=== PATIENT | male | born 1955 | race Caucasian/White ===

== ENCOUNTER 2016-12-16 06:05 | Emergency (ER) | payer BC ==
[2016-12-16 06:11] VITALS: TEMP 97.4
[2016-12-16 06:19] LABS: Glucose,Whole Blood 303 mg/dL (75-99)
--- NOTE | 2016-12-16 06:21 | ED ---
General Adult HPI - General Source: patient, RN notes reviewed Mode of arrival: ambulatory Limitations: no limitations <Serafin Briscoe - Last Filed: 12/16/16 06:50> <James Groves - Last Filed: 12/16/16 07:42> - General Chief complaint: Recheck/Abnormal Lab/Rx Stated complaint: hyperglycemia Time Seen by Provider: 12/16/16 06:05 - History of Present Illness Initial comments: This is a 61-year-old male with a past medical history significant for diabetes and ulcers on both feet. Patient comes in today because he woke up in the middle the night and he felt chilled straight checked his sugar it was over 370 decided to come to the emergency department. Patient denies any fever. Patient states the ulcers on his foot appear to be getting larger especially on his left foot. Patient has not noticed any increased redness or streaking up his feet and leg. Patient denies any difficulty breathing. Patient denies shortness of breath. Patient denies any chest pain or palpitations. Patient denies any recent fever or significant cough. Patient denies any dysuria hematuria or urinary frequency. Patient denies headache patient denies numbness or weakness. Patient denies lightheadedness or dizziness (Serafin Briscoe) - Related Data Home Medications Medication Instructions Recorded Confirmed sitaGLIPtin [Januvia] 100 mg PO DAILY 10/03/15 12/16/16 Canagliflozin/Metformin HCl 1 tab PO DAILY 10/31/15 12/16/16 [Invokamet 150-1,000 mg Tablet] Allergies Allergy/AdvReac Type Severity Reaction Status Date / Time No Known Allergies Allergy Verified 12/16/16 06:07 Review of Systems ROS Other: All systems not noted in ROS Statement are negative. <Serafin Briscoe - Last Filed: 12/16/16 06:50> ROS Other: All systems not noted in ROS Statement are negative. <James Groves - Last Filed: 12/16/16 07:42> ROS Statement: Those systems with pertinent positive or pertinent negative responses have been documented in the HPI. Past Medical History Past Medical History: Diabetes Mellitus Additional Past Medical History / Comment(s): wound to left foot, recurrent History of Any Multi-Drug Resistant Organisms: None Reported Past Surgical History: Tonsillectomy Additional Past Surgical History / Comment(s): amputation of great toe and middle toe left foot, laser to both eyes Past Anesthesia/Blood Transfusion Reactions: No Reported Reaction Past Psychological History: No Psychological Hx Reported Smoking Status: Never smoker Past Alcohol Use History: None Reported Past Drug Use History: None Reported - Past Family History Mother Family Medical History: No Reported History Father Family Medical History: Diabetes Mellitus <Serafin Briscoe - Last Filed: 12/16/16 06:50> General Exam Limitations: no limitations <Serafin Briscoe - Last Filed: 12/16/16 06:50> <James Groves Radha - Last Filed: 12/16/16 07:42> - General Exam Comments Initial Comments: GENERAL: Patient is well-developed and well-nourished. Patient is nontoxic and well- hydrated and is in mild distress. ENT: Neck is soft and supple. No significant lymphadenopathy is noted. Oropharynx is clear. Moist mucous membranes. Neck has full range of motion without eliciting any pain. EYES: The sclera were anicteric and conjunctiva were pink and moist. Extraocular movements were intact and pupils were equal round and reactive to light. Eyelids were unremarkable. PULMONARY: Unlabored respirations. Good breath sounds bilaterally. No audible rales rhonchi or wheezing was noted. CARDIOVASCULAR: There is a regular rate and rhythm without any murmurs gallops or rubs. ABDOMEN: Soft and nontender with normal bowel sounds. No palpable organomegaly was noted. There is no palpable pulsatile mass. SKIN: Patient has an ulcer on the medial aspect of the right first toe there is also an ulceration on the left foot at the base of the first and second toe. There is no significant erythema or streaking from either of these sites. NEUROLOGIC: Patient is alert and oriented x3. Cranial nerves II through XII are grossly intact. Motor and sensory are also intact. Normal speech, volume and content. Symmetrical smile. MUSCULOSKELETAL: Normal extremities with adequate strength and full range of motion. LYMPHATICS: No significant lymphadenopathy is noted PSYCHIATRIC: Normal psychiatric evaluation. Normal interpersonal interactions appears functionally intact in deals appropriately with others. No signs of depression. No signs of anxiety. (Serafin Briscoe) Medical Decision Making - Lab Data Result diagrams: 12/16/16 06:23 <Serafin Briscoe - Last Filed: 12/16/16 06:50> - Lab Data Result diagrams: 12/16/16 06:23 12/16/16 06:23 <James Groves - Last Filed: 12/16/16 07:42> - Medical Decision Making EKG shows normal sinus rhythm at 80 bpm KS interval is a 70 QRS 116 QT interval 376 QTC is 454 per patient's EKG shows no ST segment elevation or depression or T wave abnormalities are noted. Dr. Groves will be taking over the care of this patient at 7 AM (Serafin Briscoe) 61-year-old male presenting with lower extremity ulcers on both feet. Patient complained of chills. Noticed his sugar was elevated and came in for evaluation. I reevaluated the patient time of signout. Laboratory studies were pending. He does have bilateral ulcers at the base of the great toe. These appear clean, no purulence, no associated cellulitis. Patient is afebrile , vital signs are stable. He does have follow-up at the wound clinic, he has been not been there in several months but he states he will return for wound evaluation. Laboratory studies reveal normal white blood cell count, creatinine 1.42 which is patient's baseline, blood glucose is elevated to 58, however there is no anion gap, acetone negative. Chest x-ray shows no signs of infection. Patient is discharged with outpatient follow-up. (James Groves) - Lab Data Lab Results 12/16/16 12/16/16 12/16/16 Range/Units 06:15 06:23 06:23 WBC 7.5 (3.8-10.6) k/uL RBC 4.60 (4.30-5.90) m/uL Hgb 13.3 (13.0-17.5) gm/dL Hct 41.1 (39.0-53.0) % MCV 89.5 (80.0-100.0) fL MCH 28.9 (25.0-35.0) pg MCHC 32.3 (31.0-37.0) g/dL RDW 13.8 (11.5-15.5) % Plt Count 273 (150-450) k/uL Neutrophils % 68 % Lymphocytes % 21 % Monocytes % 6 % Eosinophils % 3 % Basophils % 1 % Neutrophils # 5.0 (1.3-7.7) k/uL Lymphocytes # 1.6 (1.0-4.8) k/uL Monocytes # 0.4 (0-1.0) k/uL Eosinophils # 0.2 (0-0.7) k/uL Basophils # 0.0 (0-0.2) k/uL PT (9.0-12.0) sec INR (<1.2) APTT (22.0-30.0) sec Sodium 138 (137-145) mmol/L Potassium 4.8 (3.5-5.1) mmol/L Chloride 105 (98-107) mmol/L Carbon Dioxide 22 (22-30) mmol/L Anion Gap 11 mmol/L BUN 31 H (9-20) mg/dL Creatinine 1.42 H (0.66-1.25) mg/dL Est GFR (MDRD) Af Amer >60 (>60 ml/min/1.73 sqM) Est GFR (MDRD) Non-Af 51 (>60 ml/min/1.73 sqM) Glucose 258 H (74-99) mg/dL POC Glucose (mg/dL) 303 H (75-99) mg/dL POC Glu Cone Trucker ID Ted Doe Plasma Lactic Acid Vitor (0.7-2.0) mmol/L Calcium 9.4 (8.4-10.2) mg/dL Total Bilirubin 0.3 (0.2-1.3) mg/dL AST 15 L (17-59) U/L ALT 24 (21-72) U/L Alkaline Phosphatase 132 H (38-126) U/L Total Protein 7.5 (6.3-8.2) g/dL Albumin 3.9 (3.5-5.0) g/dL Urine Color Urine Appearance (Clear) Urine pH (5.0-8.0) Ur Specific [place] (1.001-1.035) Urine Protein (Negative) Urine Glucose (UA) (Negative) Urine Ketones (Negative) Urine Blood (Negative) Urine Nitrite (Negative) Urine Bilirubin (Negative) Urine Urobilinogen (<2.0) mg/dL Ur Leukocyte Esterase (Negative) Acetone, Qual Negative (Negative) 12/16/16 12/16/16 12/16/16 Range/Units 06:23 06:23 06:32 WBC (3.8-10.6) k/uL RBC (4.30-5.90) m/uL Hgb (13.0-17.5) gm/dL Hct (39.0-53.0) % MCV (80.0-100.0) fL MCH (25.0-35.0) pg MCHC (31.0-37.0) g/dL RDW (11.5-15.5) % Plt Count (150-450) k/uL Neutrophils % % Lymphocytes % % Monocytes % % Eosinophils % % Basophils % % Neutrophils # (1.3-7.7) k/uL Lymphocytes # (1.0-4.8) k/uL Monocytes # (0-1.0) k/uL Eosinophils # (0-0.7) k/uL Basophils # (0-0.2) k/uL PT 9.8 (9.0-12.0) sec INR 1.0 (<1.2) APTT 26.1 (22.0-30.0) sec Sodium (137-145) mmol/L Potassium (3.5-5.1) mmol/L Chloride (98-107) mmol/L Carbon Dioxide (22-30) mmol/L Anion Gap mmol/L BUN (9-20) mg/dL Creatinine (0.66-1.25) mg/dL Est GFR (MDRD) Af Amer (>60 ml/min/1.73 sqM) Est GFR (MDRD) Non-Af (>60 ml/min/1.73 sqM) Glucose (74-99) mg/dL POC Glucose (mg/dL) (75-99) mg/dL POC Glu Cone Trucker ID Plasma Lactic Acid Vitor 1.2 (0.7-2.0) mmol/L Calcium (8.4-10.2) mg/dL Total Bilirubin (0.2-1.3) mg/dL AST (17-59) U/L ALT (21-72) U/L Alkaline Phosphatase (38-126) U/L Total Protein (6.3-8.2) g/dL Albumin (3.5-5.0) g/dL Urine Color Light Yellow Urine Appearance Clear (Clear) Urine pH 5.0 (5.0-8.0) Ur Specific [place] 1.015 (1.001-1.035) Urine Protein Negative (Negative) Urine Glucose (UA) 4+ H (Negative) Urine Ketones Negative (Negative) Urine Blood Negative (Negative) Urine Nitrite Negative (Negative) Urine Bilirubin Negative (Negative) Urine Urobilinogen <2.0 (<2.0) mg/dL Ur Leukocyte Esterase Negative (Negative) Acetone, Qual (Negative) Disposition <Serafin Briscoe - Last Filed: 12/16/16 06:50> Time of Disposition: 07:42 <James Groves - Last Filed: 12/16/16 07:42> Clinical Impression: Diabetic foot ulcer, Hyperglycemia Disposition: HOME SELF-CARE Condition: Good Instructions: Diabetic Foot Ulcers (ED) Additional Instructions: Please follow-up with the wound clinic within the next week. Referrals: Raul Barnett DO [Primary Care Provider] - 1-2 days
[2016-12-16 06:40] LABS: Basophils % (A) 1 %; CH 30.2; CHCM 33.9; Eosinophils # (A) 0.2 k/uL (0-0.7); Eosinophils % (A) 3 %; HCT 41.1 % (39.0-53.0); HDW 2.74; HGB 13.3 gm/dL (13.0-17.5); Luc # (Auto) 0.15; Luc % (Auto) 2; Lymphocytes # (A) 1.6 k/uL (1.0-4.8); Lymphocytes % (A) 21 %; MCH 28.9 pg (25.0-35.0); MCHC 32.3 g/dL (31.0-37.0); MCV 89.5 fL (80.0-100.0); Mean Platelet Volume 7.5; Monocytes # (A) 0.4 k/uL (0-1.0); Monocytes % (A) 6 %; Neutrophils % (A) 68 %; RDW 13.8 % (11.5-15.5); WBC 7.5 k/uL (3.8-10.6); WBC (Perox) 7.36
[2016-12-16] MEDS: SODIUM CHLORIDE 0.9% 500 ML IV SCH (06:43)
[2016-12-16 06:46] LABS: Appearance,Urine Clear (Clear); Bilirubin,Urine Negative (Negative); Glucose,Urine (UA) 4+ (Negative); Ketones,Urine Negative (Negative); Leukocyte Esterase,Urine Negative (Negative); Nitrite,Urine Negative (Negative); Protein,Urine Negative (Negative); Specific Gravity,Urine 1.015 (1.001-1.035); UA Billing (MACRO vs. MICRO) CHEM; Urobilinogen,Urine <2.0 mg/dL (<2.0)
[2016-12-16 06:52] LABS: Partial Thromboplastin Time 26.1 sec (22.0-30.0); Prothrombin Time 9.8 sec (9.0-12.0)
[2016-12-16 07:01] LABS: ALT 24 U/L (21-72); AST 15 U/L (17-59); Alkaline Phosphatase 132 U/L (38-126); Anion Gap 11 mmol/L; Blood Urea Nitrogen 31 mg/dL (9-20); Calcium 9.4 mg/dL (8.4-10.2); Carbon Dioxide 22 mmol/L (22-30); Chloride 105 mmol/L (98-107); Glucose 258 mg/dL (74-99); Non-African American GFR(MDRD) 51 (>60 ml/min/1.73 sqM); Potassium 4.8 mmol/L (3.5-5.1); Sodium 138 mmol/L (137-145); Total Bilirubin 0.3 mg/dL (0.2-1.3); Total Protein 7.5 g/dL (6.3-8.2)
--- NOTE | 2016-12-16 07:06 | XR ---
EXAMINATION TYPE: XR chest 2V DATE OF EXAM: 12/16/2016 COMPARISON: 12/26/2015 HISTORY: Fever and diabetes TECHNIQUE: Frontal and lateral views of the chest are obtained. FINDINGS: There is no focal air space opacity, pleural effusion, or pneumothorax seen. Linear bibasi lar subsegmental atelectasis is seen with no focal consolidation. Lung volumes are low accentuating t he pulmonary vasculature. The cardiac silhouette size is within normal limits. The osseous structu res are intact. IMPRESSION: Minimal subsegmental bibasilar atelectasis with no focal consolidation to suggest pneumo kwame.
[2016-12-16 07:58] VITALS: BP 144/82; PULSE 84; RESP 17
== END 2016-12-16 07:58 | disposition home or self-care (01) ==
LOC: EC 06:05
DX: E11.65 Type 2 diabetes mellitus with hyperglycemia (principal); E11.621 Type 2 diabetes mellitus with foot ulcer; L97.529 Non-pressure chronic ulcer of other part of left foot with unspecified severity; L97.519 Non-pressure chronic ulcer of other part of right foot with unspecified severity; R68.83 Chills (without fever); Z79.84 Long term (current) use of oral hypoglycemic drugs; Z89.412 Acquired absence of left great toe; Z89.422 Acquired absence of other left toe(s); Z83.3 Family history of diabetes mellitus
CPT/HCPCS: 36415; 71020; 80053; 81003; 82009; 83605; 85025; 85610; 85730; 87040; 87086; 93005; 96360; 99285

== ENCOUNTER → 2017-09-11 | Outpatient (CLI) | payer BC ==
[2017-09-11 09:58] LABS: Basophils % (A) 1 %; Eosinophils # (A) 0.2 k/uL (0-0.7); Eosinophils % (A) 3 %; HCT 46.7 % (39.0-53.0); HGB 15.2 gm/dL (13.0-17.5); Lymphocytes # (A) 1.4 k/uL (1.0-4.8); Lymphocytes % (A) 21 %; MCH 28.4 pg (25.0-35.0); MCHC 32.6 g/dL (31.0-37.0); MCV 87.2 fL (80.0-100.0); Monocytes # (A) 0.5 k/uL (0-1.0); Monocytes % (A) 8 %; Neutrophils # (A) 4.2 k/uL (1.3-7.7); Neutrophils % (A) 65 %; Platelet Count 257 k/uL (150-450); RBC 5.35 m/uL (4.30-5.90); RDW 13.7 % (11.5-15.5); WBC 6.5 k/uL (3.8-10.6)
[2017-09-11 10:21] LABS: Albumin 4.4 g/dL (3.5-5.0); Calcium 10.4 mg/dL (8.4-10.2); Potassium 4.9 mmol/L (3.5-5.1); Total Bilirubin 0.8 mg/dL (0.2-1.3); Total Protein 7.6 g/dL (6.3-8.2)
== END | disposition home or self-care (01) ==
LOC: LABWHC1 09:06
PROVIDERS: ATTEND Family Medicine
DX: E11.65 Type 2 diabetes mellitus with hyperglycemia (principal); M67.90 Unspecified disorder of synovium and tendon, unspecified site
CPT/HCPCS: 36415; 80053; 85025

== ENCOUNTER 2020-05-08 17:54 | Inpatient (IN) | payer BC ==
[2020-05-08] MEDS ORDERED: SODIUM CHLORIDE 0.9% 1,000 ML IV STA (18:25)
[2020-05-08] MEDS ORDERED: diphenhydrAMINE 50 MG/ML 1 ML VIAL IVP STA (18:28)
--- NOTE | 2020-05-08 18:37 | ED ---
General Adult HPI - General Chief complaint: Extremity Injury, Upper Stated complaint: Abnormal arm movement Time Seen by Provider: 05/08/20 18:13 Source: patient, RN notes reviewed Mode of arrival: ambulatory Limitations: no limitations - History of Present Illness Initial comments: Patient is a pleasant [age]-year-old male presenting to the emergency Department with abnormal movements of his arm. Onset of symptoms was around 2 days ago. Symptoms have somewhat progressed since that time. Patient states mostly this is his arm however does have a little bit of his leg as well. Patient states he is unable to control his arm and there is random movements. Patient states there may be slight decrease i and coordination and does point out that he has difficulty touching his fingers to his thumb. No headache. No speech problems. No confusion. No facial involvement. Patient has had some cramping intermittently as well. - Related Data Home Medications Medication Instructions Recorded Confirmed sitaGLIPtin [Januvia] 100 mg PO DAILY 10/03/15 05/08/20 Canagliflozin/Metformin HCl 1 tab PO BID 10/31/15 05/08/20 [Invokamet 150-1,000 mg Tablet] Bydureon Bcise 2mg Autoinject 2 mg SQ FATIMA 05/08/20 05/08/20 Esomeprazole Magnesium [NexIUM] 20 mg PO DAILY 05/08/20 05/08/20 glipiZIDE [Glucotrol] 5 mg PO DAILY 05/08/20 05/08/20 Allergies Allergy/AdvReac Type Severity Reaction Status Date / Time No Known Allergies Allergy Verified 05/08/20 18:01 Review of Systems ROS Statement: Those systems with pertinent positive or pertinent negative responses have been documented in the HPI. ROS Other: All systems not noted in ROS Statement are negative. Constitutional: Denies: fever Eyes: Denies: eye pain ENT: Denies: ear pain Respiratory: Denies: cough, dyspnea Cardiovascular: Denies: chest pain Endocrine: Denies: fatigue Gastrointestinal: Denies: abdominal pain Genitourinary: Denies: dysuria Musculoskeletal: Denies: back pain Skin: Denies: rash Neurological: Reports: as per HPI. Denies: headache Past Medical History Past Medical History: Diabetes Mellitus Additional Past Medical History / Comment(s): wound to bottom of left foot, recurrent, HAS HAD "SHOTS IN RETINA RIGHT EYE R/T SWELLING" History of Any Multi-Drug Resistant Organisms: None Reported Past Surgical History: Tonsillectomy Additional Past Surgical History / Comment(s): amputation of great toe and middle toe left foot, laser to both eyes, Past Anesthesia/Blood Transfusion Reactions: No Reported Reaction Past Psychological History: No Psychological Hx Reported Smoking Status: Never smoker Past Alcohol Use History: None Reported Past Drug Use History: None Reported - Past Family History Mother History Unknown: Yes Family Medical History: No Reported History Father History Unknown: Yes Family Medical History: Diabetes Mellitus General Exam Limitations: no limitations General appearance: alert, in no apparent distress Head exam: Present: atraumatic Eye exam: Present: normal appearance, PERRL, EOMI. Absent: nystagmus ENT exam: Present: normal oropharynx Neck exam: Present: normal inspection Respiratory exam: Present: normal lung sounds bilaterally Cardiovascular Exam: Present: regular rate, normal rhythm GI/Abdominal exam: Present: soft. Absent: tenderness Extremities exam: Present: normal inspection. Absent: pedal edema, calf tenderness Neurological exam: Present: alert, oriented X3, CN II-XII intact Expanded Neurological exam: Present: protecting the airway Speech: Present: fluid speech Cranial nerves: EOM's Intact: Normal, Facial Sensation: Normal Cerebellar function: Finger to Nose: Abnormal Left Sensory exam: Upper Extremity Light Touch: Normal, Lower Extremity Light Touch: Normal Motor strength exam: RUE: 5, LUE: 5 (Patient has difficulty with touching each finger to his thumb), RLE: 5, LLE: 5 Eye Response: (4) open spontaneously Motor Response: (6) obeys commands Verbal Response: (5) oriented Psychiatric exam: Present: normal affect, normal mood Skin exam: Present: normal color Course Vital Signs 05/08/20 05/08/20 17:56 19:01 Temperature 97.9 F Pulse Rate 105 H 95 Respiratory 18 20 Rate Blood Pressure 182/87 164/86 O2 Sat by Pulse 98 98 Oximetry EKG Findings - EKG Comments: EKG Findings:: Normal sinus rhythm 94. [place] 170. QRS 114. QT 374. QTC 457. Left axis. LVH criteria. No acute ST change. Medical Decision Making - Medical Decision Making Patient reevaluated and unchanged. Case was discussed with Dr. Manuel, who will admit for Dr. Barnett with neurology consult. - Lab Data Result diagrams: 05/08/20 19:09 05/08/20 19:09 Lab Results 05/08/20 05/08/20 05/08/20 Range/Units 19: 19: 19:09 WBC 5.5 (3.8-10.6) k/uL RBC 4.59 (4.30-5.90) m/uL Hgb 12.6 L (13.0-17.5) gm/dL Hct 37.5 L (39.0-53.0) % MCV 81.7 (80.0-100.0) fL MCH 27.4 (25.0-35.0) pg MCHC 33.5 (31.0-37.0) g/dL RDW 14.9 (11.5-15.5) % Plt Count 244 (150-450) k/uL MPV 7.4 Neutrophils % 62 % Lymphocytes % 26 % Monocytes % 5 % Eosinophils % 4 % Basophils % 1 % Neutrophils # 3.4 (1.3-7.7) k/uL Lymphocytes # 1.4 (1.0-4.8) k/uL Monocytes # 0.3 (0-1.0) k/uL Eosinophils # 0.2 (0-0.7) k/uL Basophils # 0.0 (0-0.2) k/uL PT 9.9 (9.0-12.0) sec INR 0.9 (<1.2) APTT 23.2 (22.0-30.0) sec Sodium (137-145) mmol/L Potassium (3.5-5.1) mmol/L Chloride (98-107) mmol/L Carbon Dioxide (22-30) mmol/L Anion Gap mmol/L BUN (9-20) mg/dL Creatinine (0.66-1.25) mg/dL Est GFR (CKD-EPI)AfAm (>60 ml/min/1.73 sqM) Est GFR (CKD-EPI)NonAf (>60 ml/min/1.73 sqM) Glucose (74-99) mg/dL Calcium (8.4-10.2) mg/dL Phosphorus (2.5-4.5) mg/dL Magnesium (1.6-2.3) mg/dL Total Bilirubin (0.2-1.3) mg/dL AST (17-59) U/L ALT (4-49) U/L Alkaline Phosphatase (38-126) U/L Creatine Kinase (55-170) U/L Total Protein (6.3-8.2) g/dL Albumin (3.5-5.0) g/dL TSH (0.465-4.680) mIU/L Free T4 (0.78-2.19) ng/dL Free T3 pg/mL (2.8-5.3) pg/ml Urine Color Light Yellow Urine Appearance Clear (Clear) Urine pH 6.5 (5.0-8.0) Ur Specific [place] 1.022 (1.001-1.035) Urine Protein Negative (Negative) Urine Glucose (UA) 4+ H (Negative) Urine Ketones Negative (Negative) Urine Blood Negative (Negative) Urine Nitrite Negative (Negative) Urine Bilirubin Negative (Negative) Urine Urobilinogen <2.0 (<2.0) mg/dL Ur Leukocyte Esterase Negative (Negative) 05/08/20 Range/Units 19:09 WBC (3.8-10.6) k/uL RBC (4.30-5.90) m/uL Hgb (13.0-17.5) gm/dL Hct (39.0-53.0) % MCV (80.0-100.0) fL MCH (25.0-35.0) pg MCHC (31.0-37.0) g/dL RDW (11.5-15.5) % Plt Count (150-450) k/uL MPV Neutrophils % % Lymphocytes % % Monocytes % % Eosinophils % % Basophils % % Neutrophils # (1.3-7.7) k/uL Lymphocytes # (1.0-4.8) k/uL Monocytes # (0-1.0) k/uL Eosinophils # (0-0.7) k/uL Basophils # (0-0.2) k/uL PT (9.0-12.0) sec INR (<1.2) APTT (22.0-30.0) sec Sodium 132 L (137-145) mmol/L Potassium 4.4 (3.5-5.1) mmol/L Chloride 98 (98-107) mmol/L Carbon Dioxide 24 (22-30) mmol/L Anion Gap 10 mmol/L BUN 20 (9-20) mg/dL Creatinine 1.83 H (0.66-1.25) mg/dL Est GFR (CKD-EPI)AfAm 44 (>60 ml/min/1.73 sqM) Est GFR (CKD-EPI)NonAf 38 (>60 ml/min/1.73 sqM) Glucose 417 H (74-99) mg/dL Calcium 8.4 (8.4-10.2) mg/dL Phosphorus 3.3 (2.5-4.5) mg/dL Magnesium 1.8 (1.6-2.3) mg/dL Total Bilirubin 0.4 (0.2-1.3) mg/dL AST 25 (17-59) U/L ALT 22 (4-49) U/L Alkaline Phosphatase 170 H (38-126) U/L Creatine Kinase 340 H (55-170) U/L Total Protein 6.8 (6.3-8.2) g/dL Albumin 3.8 (3.5-5.0) g/dL TSH 1.080 (0.465-4.680) mIU/L Free T4 1.44 (0.78-2.19) ng/dL Free T3 pg/mL 4.4 (2.8-5.3) pg/ml Urine Color Urine Appearance (Clear) Urine pH (5.0-8.0) Ur Specific [place] (1.001-1.035) Urine Protein (Negative) Urine Glucose (UA) (Negative) Urine Ketones (Negative) Urine Blood (Negative) Urine Nitrite (Negative) Urine Bilirubin (Negative) Urine Urobilinogen (<2.0) mg/dL Ur Leukocyte Esterase (Negative) - Radiology Data Radiology results: report reviewed (Computed tomography scan of the brain shows no acute hemorrhage or shift. Atrophy. Questionable mastoiditis.), image reviewed (Two-view chest x-ray shows chronic changes without acute.) Disposition Clinical Impression: Dystonic movements Disposition: ADMITTED IP TO THIS HOSP Is patient prescribed a controlled substance at d/c from ED?: No Referrals: Raul Barnett DO [Primary Care Provider] - 1-2 days Decision Time: 21:24
[2020-05-08 19:19] LABS: Basophils % (A) 1 %; Eosinophils # (A) 0.2 k/uL (0-0.7); Eosinophils % (A) 4 %; HCT 37.5 % (39.0-53.0); HGB 12.6 gm/dL (13.0-17.5); Lymphocytes # (A) 1.4 k/uL (1.0-4.8); Lymphocytes % (A) 26 %; MCH 27.4 pg (25.0-35.0); MCHC 33.5 g/dL (31.0-37.0); MCV 81.7 fL (80.0-100.0); Mean Platelet Volume 7.4; Monocytes # (A) 0.3 k/uL (0-1.0); Monocytes % (A) 5 %; Neutrophils # (A) 3.4 k/uL (1.3-7.7); Neutrophils % (A) 62 %; Platelet Count 244 k/uL (150-450); RBC 4.59 m/uL (4.30-5.90); RDW 14.9 % (11.5-15.5); WBC 5.5 k/uL (3.8-10.6)
[2020-05-08 19:33] LABS: Albumin 3.8 g/dL (3.5-5.0); Calcium 8.4 mg/dL (8.4-10.2); Magnesium 1.8 mg/dL (1.6-2.3); Phosphorus 3.3 mg/dL (2.5-4.5); Potassium 4.4 mmol/L (3.5-5.1); Total Bilirubin 0.4 mg/dL (0.2-1.3); Total Protein 6.8 g/dL (6.3-8.2)
[2020-05-08 19:35] LABS: Appearance,Urine Clear (Clear); Bilirubin,Urine Negative (Negative); Blood,Urine Negative (Negative); Color,Urine Light Yellow; Glucose,Urine (UA) 4+ (Negative); Ketones,Urine Negative (Negative); Leukocyte Esterase,Urine Negative (Negative); Nitrite,Urine Negative (Negative); PH, Urine 6.5 (5.0-8.0); Protein,Urine Negative (Negative); Specific Gravity,Urine 1.022 (1.001-1.035); Urobilinogen,Urine <2.0 mg/dL (<2.0)
[2020-05-08 19:50] LABS: INR 0.9 (<1.2); Partial Thromboplastin Time 23.2 sec (22.0-30.0); Prothrombin Time 9.9 sec (9.0-12.0); T4, Free (Free Thyroxine) 1.44 ng/dL (0.78-2.19)
--- NOTE | 2020-05-08 19:53 | CT ---
EXAMINATION TYPE: CT brain wo con DATE OF EXAM: 05/08/2020 HISTORY: weakness into left upper extremity. CT DLP: 1157.4 mGycm. Automated Exposure Control for Dose Reduction was Utilized. TECHNIQUE: CT scan of the head is performed without contrast. COMPARISON: None. FINDINGS: There is no acute intracranial hemorrhage or midline shift identified. There is mild diff use ventricular and sulcal prominence consistent with diffuse age-related cerebral atrophy. Hope-whit e matter differentiation fairly well maintained. Septum pellucidum vergae is present. Patchy opacif ication left mastoid air cells The globes are intact and the visualized sinuses are clear. IMPRESSION: No acute intracranial hemorrhage or midline shift. There is mild diffuse age-related ce rebral atrophy. Possible mild left-sided mastoiditis, correlate clinically.
--- NOTE | 2020-05-08 19:54 | XR ---
EXAMINATION TYPE: XR chest 2V DATE OF EXAM: 05/08/2020 COMPARISON: Chest x-ray December 16, 2016 HISTORY: Weakness. TECHNIQUE: Frontal and lateral views of the chest are obtained. FINDINGS: There is low lung volumes and chronic parenchymal changes bilaterally. No new suspicious focal airspace opacity, pleural effusion, or pneumothorax is identified The cardiac silhouette size i s stable and upper limits of normal. The osseous structures are intact. IMPRESSION: Chronic changes without new suspicious acute pulmonary infiltrate.
[2020-05-08] MEDS ORDERED: LORazepam 2 MG/ML INJ IV STA (21:20)
[2020-05-08] MEDS ORDERED: ASPIRIN 325 MG TAB PO STA (21:25)
[2020-05-09 01:29] LABS: Glucose,Whole Blood 304 mg/dL (75-99)
[2020-05-09] MEDS: INSULIN ASPART (NovoLOG) 100 UNIT/ML VIAL SQ SCH ×5 (01:58→21:54)
[2020-05-09] MEDS: SODIUM CHLORIDE 0.9% 1,000 ML IV SCH ×3 (02:00→17:42)
[2020-05-09 07:14] LABS: Glucose,Whole Blood 207 mg/dL (75-99)
[2020-05-09 07:32] LABS: ALT 22 U/L (4-49); AST 31 U/L (17-59); African American GFR (CKD) 48 (>60 ml/min/1.73 sqM); Albumin 3.5 g/dL (3.5-5.0); Albumin/Globulin Ratio 1.1; Alkaline Phosphatase 152 U/L (38-126); Anion Gap 7 mmol/L; Blood Urea Nitrogen 19 mg/dL (9-20); Calcium 8.6 mg/dL (8.4-10.2); Carbon Dioxide 24 mmol/L (22-30); Chloride 107 mmol/L (98-107); Cholesterol 199 mg/dL (<200); Globulin 3.1 g/dL; Glucose 203 mg/dL (74-99); HDL Cholesterol 26 mg/dL (40-60); LDL Cholesterol,Calculated 118 mg/dL (0-99); Non-African American GFR(CKD) 41 (>60 ml/min/1.73 sqM); Potassium 4.4 mmol/L (3.5-5.1); Sodium 138 mmol/L (137-145); Total Bilirubin 0.4 mg/dL (0.2-1.3); Total Protein 6.6 g/dL (6.3-8.2); Triglycerides 277 mg/dL (<150)
--- NOTE | 2020-05-09 07:34 | US ---
EXAMINATION TYPE: US carotid duplex BILAT DATE OF EXAM: 05/09/2020 COMPARISON: NONE CLINICAL HISTORY: 64-year-old male Stenosis. Patient states that she has left side immobility. TECHNIQUE: Carotid duplex ultrasound examination. Indirect Doppler criteria was utilized. FINDINGS: EXAM MEASUREMENTS: RIGHT: Peak Systolic Velocity (PSV) cm/sec ----- Right CCA: 58.1 ----- Right ICA: 76.8 ----- Right ECA: 109.7 ICA/CCA ratio: 1.3 RIGHT: End Diastole cm/sec ----- Right CCA: 12.0 ----- Right ICA: 28.5 ----- Right ECA: 7.9 LEFT: Peak Systolic Velocity (PSV) cm/sec ----- Left CCA: 65.9 ----- Left ICA: 76.8 ----- Left ECA: 106.4 ICA/CCA ratio: 1.2 LEFT: End Diastole cm/sec ----- Left CCA: 15.4 ----- Left ICA: 27.4 ----- Left ECA: 12.8 VERTEBRALS (direction of flow): Right Vertebral: Antegrade Left Vertebral: Antegrade Rhythm: Normal Pie Dough Roller notes: Bilateral wall thickening. No significant stenosis or elevated velocities. No pl aque visualized. IMPRESSION: No hemodynamically significant internal carotid artery stenosis on either side. Criteria for Assigning % of Stenosis / Diameter reduction (Estimation based on the indirect measurements of the internal carotid artery velocities (ICA PSV). 1. Normal (no stenosis)=ICA PSV < 125 cm/s: ratio < 2.0: ICA EDV<40 cm/s. 2. Less than 50% stenosis=ICA PSV < 125 cm/s: ratio < 2.0: ICA EDV<40 cm/s. 3. 50 to 69% stenosis=ICA PSV of 125 to 230 cm/s: ration 2.0 ? 4.0: ICA EDV 40-100 cm/s. 4. Greater than 70% stenosis to near occlusion= ICA PSV > 230 cm/s: ratio > 4.0: ICA EDV > 100 cm/s. 5. Near occlusion= ICA PSV velocities may be low or undetectable: variable ratio and ICA EDV. 6. Total occlusion=unable to detect flow.
[2020-05-09 10:28] LABS: HCT 38.1 % (39.6-50.0); HGB 12.1 g/dL (13.0-17.0); MCH 26.4 pg (27.0-32.0); MCHC 31.8 g/dL (32.0-37.0); MCV 83.2 fL (80.0-97.0); Mean Platelet Volume 10.5 fL (9.5-12.2); Platelet Count 270 X 10*3/uL (140-440); RBC 4.58 X 10*6/uL (4.40-5.60); RDW 14.5 % (11.5-14.5); WBC 5.62 X 10*3/uL (4.50-10.00)
[2020-05-09] MEDS: [UNRECOGNIZED DRUG - OTHER] PO SCH ×2 (10:41→21:41)
[2020-05-09] MEDS: LINAGLIPTIN 5 MG TABLET PO SCH (10:41)
[2020-05-09] MEDS: METFORMIN HCL PO SCH ×2 (10:41→21:41)
[2020-05-09] MEDS: CANAGLIFLOZIN PO SCH ×2 (10:41→21:41)
[2020-05-09] MEDS: glipiZIDE 5 MG TAB PO SCH (10:41)
[2020-05-09] MEDS: CLOPIDOGREL 75 MG TAB PO SCH (10:41)
[2020-05-09 12:07] LABS: Glucose,Whole Blood 181 mg/dL (75-99)
--- NOTE | 2020-05-09 17:22 | MR ---
EXAMINATION TYPE: MR brain wo/w con DATE OF EXAM: 05/09/2020 COMPARISON: CT brain 05/08/2020 HISTORY: Left sided weakness, dystonic movements TECHNIQUE: Multiplanar, multisequence images of the brain and brainstem is performed without and with IV contras t, utilizing 9.5 mL intravenous Gadavist . Fast brain protocol was utilized due to patient's debility . FINDINGS: Diffusion weighted images demonstrate no evidence of a recent infarct or other diffusion ab normality. There is no extra-axial fluid collection. Periventricular confluent, pericallosal and pe riventricular hyperintensity present on inversion recovery T2-weighted sequences, increased signal al so present within the kamron. The ventricular system and cisternal spaces are normal in size and appear ance. The brain volume is age appropriate, there is cortical atrophy. Midline structures demonstrate normal morphology. The craniocervical junction appears within normal limits. Post contrast images demonstrate no abnormal enhancement. The dural venous sinuses appear pa tent. The visualized sinuses are remarkable for inflammatory change in the ethmoid air cells and the globes are intact. IMPRESSION: Nonspecific white matter demyelination. No evident subacute ischemia. Age-related atrophy . Sinus disease.
[2020-05-09 17:33] LABS: Glucose,Whole Blood 118 mg/dL (75-99)
--- NOTE | 2020-05-09 19:36 | ECHOF ---
Referral Reason:Thrombus MEASUREMENTS -------- HEIGHT: 185.4 cm WEIGHT: 93.9 kg BP: 150/80 RVIDd: 3.8 cm (< 3.3) IVSd: 1.2 cm (0.6 - 1.1) LVIDd: 4.1 cm (3.9 - 5.3) LVPWd: 1.6 cm (0.6 - 1.1) IVSs: 1.8 cm LVIDs: 2.3 cm LVPWs: 1.7 cm LAESV Index (A-L): 26.98 ml/m Ao Diam: 3.2 cm (2.0 - 3.7) AV Cusp: 2.2 cm (1.5 - 2.6) MV EXCURSION: 16.432 mm (> 18.000) MV EF SLOPE: 65 mm/s (70 - 150) EPSS: 0.4 cm MV E Vega: 0.93 m/s MV DecT: 72 ms MV A Vega: 0.94 m/s MV E/A Ratio: 0.99 AR PHT: 428 ms RAP: 5.00 mmHg RVSP: 21.93 mmHg FINDINGS -------- Sinus rhythm. This was a technically adequate study. The left ventricular size is normal. There is mild concentric left ventricular hypertrophy. Overa ll left ventricular systolic function is normal with, an EF between 55 - 60 %. The diastolic fillin g pattern is normal for the age of the patient 12.89. The right ventricle is mild to moderately enlarged. Normal LA size by volume 22+/-6 ml/m2. The right atrial size is normal. Interatrial and interventricular septum intact. The aortic valve is trileaflet and appears structurally normal. There is mild aortic regurgitation. The mitral valve is normal. Mild mitral regurgitation is present. The tricuspid valve appears structurally normal. Mild tricuspid regurgitation present. Right vent ricular systolic pressure is normal at < 35 mmHg. The right ventricular systolic pressure, as measu red by Doppler, is 21.93mmHg. There is no pulmonic regurgitation present. The aortic root size is normal. IVC Not well visulized. There is no pericardial effusion. CONCLUSIONS -------- 1. There is mild concentric left ventricular hypertrophy. 2. Overall left ventricular systolic function is normal with, an EF between 55 - 60 %. 3. The right ventricle is mild to moderately enlarged. 4. Normal LA size by volume 22+/-6 ml/m2. 5. There is mild aortic regurgitation. 6. Mild mitral regurgitation is present. 7. Mild tricuspid regurgitation present. 8. There is no pericardial effusion. PRECISION GRINDER EXTERNAL: Diana Ritter RDCS
[2020-05-09 20:26] LABS: Glucose,Whole Blood 138 mg/dL (75-99)
--- NOTE | 2020-05-09 21:04 | P.CNNES ---
History of Present Illness Consult date: 05/09/20 Requesting physician: Devonte Camarillo Reason for Consult: Dystonic movements on the left side History of Present Illness: Patient is a 64-year-old male came to the hospital yesterday at 5:54 PM came for abnormal movements of his arm. Symptoms started about 2 days ago on Thursday at around 4:56 PM, and the symptoms got worse yesterday. Patient was having involuntary movement of the left arm and left leg. The left leg would move forward with hip extension, and the left arm would have some choreoathetoid movements. Patient denies any problem with the vision, slurred speech, dysphagia or any focal numbness tingling or weakness. Vital signs on arrival blood pressure 182/87, pulse rate 105, temperature 97.9. Most recent blood pressure 170/86. Carotid Doppler showed no hemodynamically significant stenosis. Antegrade flow in both vertebral arteries. EKG shows normal sinus rhythm. Minimal voltage criteria for LVH. Chest x-ray showed chronic changes without new suspicious acute pulmonary infiltrate. MRI of the brain was reviewed, which showed no acute process. No acute CVA. Some small vessel disease. Blood test shows normal WBC, hemoglobin 12.6, platelets 244. PT/PTT normal. Sodium 132, potassium 4.4, BUN 20, creatinine 1.83, normal renal functions. CK 340, total cholesterol 199, LDL 118, HDL 26 and triglycerides 277. TFTs normal. UA negative. Ceja virus PCR negative. Patient's last hemoglobin A1c 9.3 on 12/19/2016. Patient takes Januvia, metformin, Nexium, glipizide and Bydureon. Patient does not take any antiplatelets at home. Patient has history of diabetes since age 46, 20 years ago. He has neuropathy in the feet for the last 2-3 years. Patient's blood sugar has been not very controlled, running around 300-400 range. Patient denies hypertension or hyperlipidemia, nonsmoker. Does not drink. Review of Systems As above in detail. Denies any neck pain, back pain. Denies any chest pain, abdominal pain, nausea vomiting diarrhea. Denies any shortness of breath double vision. Patient does have neuropathy in the feet. All other review of systems reviewed and noncontributory to present illness Past Medical History Past Medical History: Diabetes Mellitus Additional Past Medical History / Comment(s): wound to bottom of left foot resolved- left great toe amputation 2011; 3rd left toe amptuation 2014; states had shot to both eye r/t swelling; right calf cramps occasionally History of Any Multi-Drug Resistant Organisms: None Reported Past Surgical History: Tonsillectomy Additional Past Surgical History / Comment(s): amputation of great toe and middle toe left foot, laser to both eyes Past Anesthesia/Blood Transfusion Reactions: No Reported Reaction Past Psychological History: No Psychological Hx Reported Additional Psychological History / Comment(s): lives alone with dog; independent- sister helps out sometimes. works for [employer] out of [employer] Smoking Status: Never smoker Past Alcohol Use History: None Reported Past Drug Use History: None Reported - Past Family History Mother History Unknown: Yes Family Medical History: No Reported History Father History Unknown: Yes Family Medical History: Diabetes Mellitus Medications and Allergies Home Medications Medication Instructions Recorded Confirmed Type sitaGLIPtin [Januvia] 100 mg PO DAILY 10/03/15 05/08/20 History Canagliflozin/Metformin HCl 1 tab PO BID 10/31/15 05/08/20 History [Invokamet 150-1,000 mg Tablet] Bydureon Bcise 2mg Autoinject 2 mg SQ FATIMA 05/08/20 05/08/20 History Esomeprazole Magnesium [NexIUM] 20 mg PO DAILY 05/08/20 05/08/20 History glipiZIDE [Glucotrol] 5 mg PO DAILY 05/08/20 05/08/20 History Allergies Allergy/AdvReac Type Severity Reaction Status Date / Time No Known Allergies Allergy Verified 05/08/20 18:01 Physical Examination - Vital Signs Vital Signs: Vital Signs Temp Pulse Pulse Resp BP BP Pulse Ox 05/09/20 08:00 97.5 F L 89 16 170/86 96 05/09/20 01:39 98.0 F 97 18 150/80 96 05/08/20 23:55 97 18 137/97 98 05/08/20 23:00 97 21 173/87 94 L 05/08/20 22:00 98.9 F 108 H 20 145/89 98 05/08/20 21:20 97 18 168/97 96 05/08/20 20:00 96 20 174/93 97 05/08/20 19:01 95 20 164/86 98 05/08/20 17:56 97.9 F 105 H 18 182/87 98 Intake and Output 05/09/20 05/09/20 05/09/20 06:59 14:59 22:59 Intake Total 800 Balance 800 Intake: IV 800 Sodium Chloride 0.9% 1, 800 000 ml @ 100 mls/hr IV . Q10H [facility] Rx#:[id number] On examination patient is a late middle aged male, in no acute distress. Patient is alert and awake oriented to time place and person. Speech and language functions are normal. Attention, concentration and fund of knowledge appears adequate. On cranial nerve exam her pupils are round and reactive to light, visual florez are full on confrontation, extraocular muscles are intact with no nystagmus. Face is symmetric, tongue protrudes to the midline. Palatal elevation sensation normal, hearing and shoulder shrug normal. On muscle strength testing patient has left upward pronation, and some dystonic movements of the left upper limb. The strength appears normal in the arms and legs. Reflexes are absent and plantars are downgoing. Sensory to touch is equal with no neglect. Patient has no ataxia for cmwmgh-[id number]-ldgd or [id number]-dp-[id number] testing on either side, although does have some choreo-athetoid movements on the left side. Tone is normal on the right side., Whereas on the left, the tone is normal, unless patient develops athetoid movement, then the arm stays extended in stiff position. Gait deferred. On general exam shows there is no obvious bruit, S1-S2 audible. Abdomen soft nontender, chest is clear. Results - Laboratory Findings CBC and BMP: 05/09/20 06:45 05/09/20 06:45 Abnormal Lab Findings: Abnormal Labs 05/08/20 05/08/20 05/08/20 19:09 19:09 19:09 Hgb 12.6 L Hct 37.5 L MCH MCHC Sodium 132 L Creatinine 1.83 H Glucose 417 H POC Glucose (mg/dL) Alkaline Phosphatase 170 H Creatine Kinase 340 H Triglycerides LDL Cholesterol, Calc HDL Cholesterol Urine Glucose (UA) 4+ H 05/09/20 05/09/20 05/09/20 01:28 06:45 06:45 Hgb 12.1 L Hct 38.1 L MCH 26.4 L MCHC 31.8 L Sodium Creatinine 1.71 H Glucose 203 H POC Glucose (mg/dL) 304 H Alkaline Phosphatase 152 H Creatine Kinase Triglycerides 277 H LDL Cholesterol, Calc 118 H HDL Cholesterol 26 L Urine Glucose (UA) 05/09/20 05/09/20 07:12 12:05 Hgb Hct MCH MCHC Sodium Creatinine Glucose POC Glucose (mg/dL) 207 H 181 H Alkaline Phosphatase Creatine Kinase Triglycerides LDL Cholesterol, Calc HDL Cholesterol Urine Glucose (UA) Assessment and Plan Assessment: * New-onset choreoathetotic movements involving left arm and leg of 2 days duration, of unclear etiology. No evidence of acute stroke noted on MRI of the brain. Rule out partial seizures. Rule out antiphospholipid syndrome, or other metabolic dysfunction. * Diabetes, poorly controlled Plan: * MRI of the brain revealed nonspecific white matter demyelination. No evident subacute ischemia. Age-related atrophy. Sinus disease. * 2-D echo showed mild concentric LVH, EF is 55-60%. Normal left atrial size. Mild aortic regurgitation. Right ventricle is mild to moderately enlarged. No embolic source. * Carotid Doppler showed no hemodynamically significant ICA stenosis on either side. Antegrade flow in both vertebral arteries. * Lipid panel with cholesterol 199, LDL 118, HDL 26 and triglycerides 277. Agree with starting Lipitor 40 mg. * We will check hemoglobin A1c, lupus anticoagulant, antiphospholipid a ntibodies, HALIE, copper, ceruloplasmin, ESR. * EEG to rule out any epileptiform activity. * Aspirin was given aspirin 325 mg in the ER. Patient to be started on aspirin 81 mg daily from tomorrow. * Telemetry monitoring showing sinus rhythm in 70s. No other arrhythmias. * We will follow.
[2020-05-09] MEDS ORDERED: ASPIRIN 325 MG TAB PO SCH (21:26)
[2020-05-09] MEDS: ATORVASTATIN 40 MG TAB PO SCH (21:52)
--- NOTE | 2020-05-09 22:13 | P.HPIM ---
History of Present Illness H&P Date: 05/09/20 Chief Complaint: Left arm and leg weak History of presenting complaint: This is a very pleasant 64-year-old patient of Dr. Porter. Diabetes mellitus, left great toe amputation 2011, left third toe amputation 2014, GERD, muscle cramps. Patient presents now with episodes of left arm and left leg feeling a bit weak. Having trouble with finder and ablations. He also has numbness in the left lower extremity with some time. No neck pain. No fever no chills. No change in speech swallowing headache. Review of systems: GEN.: Tired EYES: None HEENT: None NECK: None RESPIRATORY: None CARDIOVASCULAR: None GASTROINTESTINAL: None GENITOURINARY: None MUSCULOSKELETAL: None LYMPHATICS: None HEMATOLOGICAL: None PSYCHIATRY: None NEUROLOGICAL: As above Past medical history to include: Diabetes, toe amputation, peripheral neuropathy Social history: Lives alone. Does not smoke or drink alcohol. Family history: Reviewed, noncontributory to presentation Physical examination: VITAL SIGNS: 97.9, 95, 18, 1 64/86, 98% on room air GENERAL: BMI 27.3, laying in bed, awake]. EYES: Pupils equal. Conjunctiva normal. HEENT: External appearance of nose and ears normal, oral cavity grossly normal. NECK: JVD not raised; masses not palpable. HEART: First and second heart sounds are normal; no edema. LUNGS: Respiratory rate normal; clear to auscultation. ABDOMEN: Soft, nontender, liver spleen not palpable, no masses palpable. PSYCH: Alert and oriented x3; mood and affect normal. NEUROLOGICAL: [Cranial nerves grossly intact; no facial asymmetry, power in the left arm 3/5. Patient has some trouble with distal coordination. Following the left leg for over 5, decreased sensation distally LYMPHATICS: No lymph nodes palpable in the axilla and neck INVESTIGATIONS, reviewed in the clinical context: WBC 5.60 globin 12.1 platelets 270 potassium 4.4 creatinine 1.71 LDL 118 EKG tracing personally reviewed by me-normal sinus rhythm Chest x-ray film personally reviewed by me-borderline cardiomegaly Computed tomography scan of the head-Some age-related atrophy. Assessment and plan: -This is a patient presents with increasing weakness on the left side. No neck pain. No other central symptoms. Computed tomography scan was negative. Protein S MRI of the brain and neck. -Diabetes mellitus type 2. Resume oral hypoglycemic. Follow Accu-Cheks. Consultation to neurology. Patient was started an aspirin and Lipitor Plavix for now. Follow Accu-Cheks. Past Medical History Past Medical History: Diabetes Mellitus Additional Past Medical History / Comment(s): wound to bottom of left foot re solved- left great toe amputation 2011; 3rd left toe amptuation 2014; states had shot to both eye r/t swelling; right calf cramps occasionally History of Any Multi-Drug Resistant Organisms: None Reported Past Surgical History: Tonsillectomy Additional Past Surgical History / Comment(s): amputation of great toe and middle toe left foot, laser to both eyes Past Anesthesia/Blood Transfusion Reactions: No Reported Reaction Past Psychological History: No Psychological Hx Reported Additional Psychological History / Comment(s): lives alone with dog; i ndependent- sister helps out sometimes. works for [employer] out of [employer] Smoking Status: Never smoker Past Alcohol Use History: None Reported Past Drug Use History: None Reported - Past Family History Mother History Unknown: Yes Family Medical History: No Reported History Father History Unknown: Yes Family Medical History: Diabetes Mellitus Medications and Allergies Home Medications Medication Instructions Recorded Confirmed Type sitaGLIPtin [Januvia] 100 mg PO DAILY 10/03/15 05/08/20 History Canagliflozin/Metformin HCl 1 tab PO BID 10/31/15 05/08/20 History [Invokamet 150-1,000 mg Tablet] Bydureon Bcise 2mg Autoinject 2 mg SQ FATIMA 05/08/20 05/08/20 History Esomeprazole Magnesium [NexIUM] 20 mg PO DAILY 05/08/20 05/08/20 History glipiZIDE [Glucotrol] 5 mg PO DAILY 05/08/20 05/08/20 History Allergies Allergy/AdvReac Type Severity Reaction Status Date / Time No Known Allergies Allergy Verified 05/08/20 18:01 Physical Exam Vitals: Vital Signs Temp Pulse Pulse Resp BP BP Pulse Ox 05/09/20 01:39 98.0 F 97 18 150/80 96 05/08/20 23:55 97 18 137/97 98 05/08/20 23:00 97 21 173/87 94 L 05/08/20 22:00 98.9 F 108 H 20 145/89 98 05/08/20 21:20 97 18 168/97 96 05/08/20 20:00 96 20 174/93 97 05/08/20 19:01 95 20 164/86 98 05/08/20 17:56 97.9 F 105 H 18 182/87 98 Intake and Output 05/08/20 05/09/20 05/09/20 22:59 06:59 14:59 Output Total 800 Balance -800 Output: Urine 800 Other: # Voids 2 Weight 94 kg Results CBC & Chem 7: 05/09/20 06:45 05/09/20 06:45 Labs: Abnormal Lab Results - Last 24 Hours (Table) 05/08/20 05/08/20 05/08/20 Range/Units 19:09 19:09 19:09 Hgb 12.6 L (13.0-17.5) gm/dL Hct 37.5 L (39.0-53.0) % Sodium 132 L (137-145) mmol/L Creatinine 1.83 H (0.66-1.25) mg/dL Glucose 417 H (74-99) mg/dL POC Glucose (mg/dL) (75-99) mg/dL Alkaline Phosphatase 170 H (38-126) U/L Creatine Kinase 340 H (55-170) U/L Triglycerides (<150) mg/dL LDL Cholesterol, Calc (0-99) mg/dL HDL Cholesterol (40-60) mg/dL Urine Glucose (UA) 4+ H (Negative) 05/09/20 05/09/20 05/09/20 Range/Units 01:28 06:45 07:12 Hgb (13.0-17.5) gm/dL Hct (39.0-53.0) % Sodium (137-145) mmol/L Creatinine 1.71 H (0.66-1.25) mg/dL Glucose 203 H (74-99) mg/dL POC Glucose (mg/dL) 304 H 207 H (75-99) mg/dL Alkaline Phosphatase 152 H (38-126) U/L Creatine Kinase (55-170) U/L Triglycerides 277 H (<150) mg/dL LDL Cholesterol, Calc 118 H (0-99) mg/dL HDL Cholesterol 26 L (40-60) mg/dL Urine Glucose (UA) (Negative) Thrombosis Risk Factor Assmnt - Choose All That Apply Any of the Below Risk Factors Present?: Yes Each Factor Represents 1 point: Obesity (BMI >25) Other Risk Factors: Yes Each Risk Factor Represents 2 Points: Age 61-74 years Other congenital or acquired thrombophilia - If yes, enter type in comment: No Thrombosis Risk Factor Assessment Total Risk Factor Score: 3 Thrombosis Risk Factor Assessment Level: Moderate Risk
[2020-05-10] MEDS: ENOXAPARIN 40 MG/0.4 ML SYRINGE SQ SCH ×2 (00:34→08:05)
[2020-05-10 05:20] LABS: Hemoglobin A1C 15.6 % (4.0-6.0)
[2020-05-10 06:49] LABS: Glucose,Whole Blood 159 mg/dL (75-99)
[2020-05-10] MEDS: glipiZIDE 5 MG TAB PO SCH (08:05)
[2020-05-10] MEDS: CLOPIDOGREL 75 MG TAB PO SCH (08:05)
[2020-05-10] MEDS: METFORMIN HCL PO SCH ×2 (08:05→20:52)
[2020-05-10] MEDS: LINAGLIPTIN 5 MG TABLET PO SCH (08:05)
[2020-05-10] MEDS: [UNRECOGNIZED DRUG - OTHER] PO SCH ×2 (08:05→20:52)
[2020-05-10] MEDS: PANTOPRAZOLE 40 MG TABLET PO SCH (08:05)
[2020-05-10] MEDS: ASPIRIN 81 MG PO SCH (08:05)
[2020-05-10] MEDS: CANAGLIFLOZIN PO SCH ×2 (08:05→20:52)
[2020-05-10] MEDS: INSULIN ASPART (NovoLOG) 100 UNIT/ML VIAL SQ SCH ×4 (08:06→20:52)
[2020-05-10 09:36] LABS: Cardiolipin Ab IgG Interp NEGATIVE (NEGATIVE); Cardiolipin Ab IgM Interp NEGATIVE (NEGATIVE); Cardiolipin IgA Antibody 1.3 U/mL; Cardiolipin IgM Antibody 8.6 U/mL
[2020-05-10 11:50] LABS: Glucose,Whole Blood 214 mg/dL (75-99)
[2020-05-10] MEDS ORDERED: ACETAMINOPHEN TAB 325 MG TAB PO PRN (12:00)
[2020-05-10 14:11] VITALS: BMI 27.3
--- NOTE | 2020-05-10 14:37 | P.PN ---
Subjective Progress Note Date: 05/10/20 Patient continues to have left choreoathetoid movements. No new focal symptoms. Complains of some aching in the left upper arm with all the movements. No new symptoms Objective - Vital Signs Vital signs: Vital Signs Temp 101.9 F H 05/10/20 11:56 Pulse 85 05/10/20 07:08 Resp 17 05/10/20 07:08 BP 152/82 05/10/20 07:08 Pulse Ox 98 05/10/20 07:08 Intake & Output 05/09/20 05/10/20 05/10/20 18:59 06:59 18:59 Intake Total 800 Balance 800 Weight 94 kg Intake: IV 800 Sodium Chloride 0.9% 1, 800 000 ml @ 100 mls/hr IV . Q10H [facility] Rx#:[id number] Other: Voiding Method Toilet Urinal # Voids 2 - Exam Mentation normal, cranial nerves normal. Muscle strength again shows choreoathetoid movement of the left arm and left leg. Sensations are equal. - Labs CBC & Chem 7: 05/09/20 06:45 05/09/20 06:45 Labs: Abnormal Lab Results - Last 24 Hours (Table) 05/09/20 05/09/20 05/09/20 Range/Units 17:31 20:20 21:38 ESR 25 H (0-15) mm/hr POC Glucose (mg/dL) 118 H 138 H (75-99) mg/dL Hemoglobin A1c (4.0-6.0) % 05/09/20 05/10/20 05/10/20 Range/Units 21:38 06:47 11:48 ESR (0-15) mm/hr POC Glucose (mg/dL) 159 H 214 H (75-99) mg/dL Hemoglobin A1c 15.6 H (4.0-6.0) % Assessment and Plan Assessment: * New-onset choreoathetotic movements involving left arm and leg of 2 days duration, of unclear etiology. No evidence of acute stroke noted on MRI of the brain. Rule out partial seizures. Rule out antiphospholipid syndrome, or other metabolic dysfunction. * Diabetes, poorly controlled Plan: * MRI of the brain revealed nonspecific white matter demyelination. No evident subacute ischemia. Age-related atrophy. Sinus disease. * 2-D echo showed mild concentric LVH, EF is 55-60%. Normal left atrial size. Mild aortic regurgitation. Right ventricle is mild to moderately enlarged. No embolic source. * Carotid Doppler showed no hemodynamically significant ICA stenosis on either side. Antegrade flow in both vertebral arteries. * Lipid panel with cholesterol 199, LDL 118, HDL 26 and triglycerides 277. Agree with starting Lipitor 40 mg. * Hemoglobin A1c 15.6, consistent with poorly controlled diabetes. Suggest optimizing diabetes to target A1c <7.0 * Lupus anticoagulant pending, anticardiolipin antibodies negative, HALIE negative. ESR 25/15. TFTs normal. Copper, ceruloplasmin, pending. * EEG was normal with no epileptiform activity. * Aspirin was given aspirin 325 mg in the ER. Patient to be started on aspirin 81 mg daily from tomorrow. Agree with dual antiplatelet medication at least for 3 weeks. * We will empirically start amantadine 100 mg twice a day for choreoathetoid movement of the left side of the body. * Telemetry monitoring showing sinus rhythm in 70s. No other arrhythmias. * Discussed with Dr. Manuel
[2020-05-10 16:57] LABS: Beta 2 Microglobulin 2.77 mg/L (0.61-2.37)
[2020-05-10 17:06] LABS: Glucose,Whole Blood 170 mg/dL (75-99)
--- NOTE | 2020-05-10 17:41 | EEG ---
ELECTROENCEPHALOGRAM REPORT DATE OF SERVICE: 05/10/2020 PREAMBLE: This is a 64-year-old male with new-onset choreoathetoid movement of the left side of the body. This study is performed to evaluate for any epileptiform activity. EEG FINDINGS: This is a 21-channel routine EEG recording in a patient utilizing 10/20 international system with referential and bipolar montages. Background consists of well-developed, well-regulated, moderate-voltage activity in 10-11 hertz alpha. Background is posterior- dominant and reactive to eye opening and closing. Photic driving response was not seen. Occasional left temporal dysrhythmic theta or delta activity was seen. Drowsiness was seen with appearance of bilaterally symmetric theta frequency rhythm. Deeper stages of sleep were not seen. No focal or generalized epileptiform activity was seen. EKG channel showed no arrhythmia. IMPRESSION: This is essentially a normal awake and drowsy EEG. No epileptiform activity was seen. MMODL / IJN: [id number] /
[2020-05-10 20:39] LABS: Glucose,Whole Blood 166 mg/dL (75-99)
[2020-05-10] MEDS: ATORVASTATIN 40 MG TAB PO SCH (20:52)
--- NOTE | 2020-05-10 21:34 | P.PN ---
Progress Note - Text Progress Note Date: 05/10/20 Chief Complaint: Left arm and leg weak History of presenting complaint: This is a very pleasant 64-year-old patient of Dr. Porter. Diabetes mellitus, left great toe amputation 2011, left third toe amputation 2014, GERD, muscle cramps. Patient presents now with episodes of left arm and left leg feeling a bit weak. Having trouble with finder and ablations. He also has numbness in the left lower extremity with some time. No neck pain. No fever no chills. No change in speech swallowing headache. Patient is felt to have choreoathetotic movements involving the left arm and leg as per neurology. MRI of the brain was negative. Today-patient unable to have the cervical spine MRI. Otherwise clinical picture the same. Patient is able to walk in the hallway. Review of systems: Was done for constitutional, cardiovascular, GI, pulmonary. Neurological relevant finding as above Active Medications Acetaminophen (Acetaminophen Tab 325 Mg Tab) 650 mg PO Q6HR PRN PRN Reason: Fever and/ or Mild Pain Aspirin (Aspirin 81 Mg) 81 mg PO DAILY [facility] Last Admin: 05/10/20 08:05 Dose: 81 mg Documented by: Atorvastatin Calcium (Atorvastatin 40 Mg Tab) 40 mg PO HS [facility] Last Admin: 05/10/20 20:52 Dose: 40 mg Documented by: Clopidogrel Bisulfate (Clopidogrel 75 Mg Tab) 75 mg PO DAILY [facility] Last Admin: 05/10/20 08:05 Dose: 75 mg Documented by: Enoxaparin Sodium (Enoxaparin 40 Mg/0.4 Ml Syringe) 40 mg SQ DAILY [facility] Last Admin: 05/10/20 08:05 Dose: 40 mg Documented by: Glipizide (Glipizide 5 Mg Tab) 5 mg PO DAILY [facility] Last Admin: 05/10/20 08:05 Dose: 5 mg Documented by: Insulin Aspart (Insulin Aspart (Novolog) 100 Unit/Ml Vial) 0 unit SQ [facility]; Protocol Last Admin: 05/10/20 20:52 Dose: 2 unit Documented by: Linagliptin (Linagliptin 5 Mg Tablet) 5 mg PO DAILY [facility] Last Admin: 05/10/20 08:05 Dose: 5 mg Documented by: Non-Formulary Medication (Canagliflozin/Metformin Hcl [Invokamet 150-1,000 Mg Tablet]) 1 tab PO BID [facility] Last Admin: 05/10/20 20:52 Dose: Not Given Documented by: Pantoprazole Sodium (Pantoprazole 40 Mg Tablet) 40 mg PO AC-BRKFST [facility] Last Admin: 05/10/20 08:05 Dose: 40 mg Documented by: Past medical history to include: Diabetes, toe amputation, peripheral neuropathy Social history: Lives alone. Does not smoke or drink alcohol. Family history: Reviewed, noncontributory to presentation Physical examination: VITAL SIGNS: 97.8, 83, 18, 163% 6, 99% room air GENERAL: BMI 27.3, laying in bed, awake. EYES: Pupils equal. Conjunctiva normal. HEENT: External appearance of nose and ears normal, oral cavity grossly normal. NECK: JVD not raised; masses not palpable. HEART: First and second heart sounds are normal; no edema. LUNGS: Respiratory rate normal; clear to auscultation. ABDOMEN: Soft, nontender, liver spleen not palpable, no masses palpable. PSYCH: Alert and oriented x3; mood and affect normal. NEUROLOGICAL: [Cranial nerves grossly intact; no facial asymmetry, power in the left arm 3/5. Patient has some trouble with distal coordination. Left leg 4/5, decreased sensation distally INVESTIGATIONS, reviewed in the clinical context: WBC 5.60 globin 12.1 platelets 270 potassium 4.4 creatinine 1.71 LDL 118 EKG tracing personally reviewed by me-normal sinus rhythm Chest x-ray film personally reviewed by me-borderline cardiomegaly Computed tomography scan of the head-Some age-related atrophy. Assessment and plan: -This is a patient presents with increasing weakness on the left side. No neck pain. No other central symptoms. Computed tomography scan was negative. MRI of the brain negative. [place] to be choreoathetotic movements as per neurology. To be started on amantadine today. See how he does. -Diabetes mellitus type 2. Resume oral hypoglycemic. Follow Accu-Cheks. -Essential hypertension. We'll start the patient Lopressor 50 mg twice a day -Hyperlipidemia-add Lipitor -Chronic kidney disease stage III from diabetic nephropathy and possibly nephrosclerosis -
[2020-05-10] MEDS: METOPROLOL TARTRATE 50 MG TAB PO SCH (21:43)
[2020-05-11 06:58] LABS: Glucose,Whole Blood 208 mg/dL (75-99)
[2020-05-11] MEDS: glipiZIDE 5 MG TAB PO SCH (07:25)
[2020-05-11] MEDS: PANTOPRAZOLE 40 MG TABLET PO SCH (07:25)
[2020-05-11] MEDS: INSULIN ASPART (NovoLOG) 100 UNIT/ML VIAL SQ SCH ×2 (07:25→11:55)
[2020-05-11] MEDS: ENOXAPARIN 40 MG/0.4 ML SYRINGE SQ SCH (07:26)
[2020-05-11] MEDS: LINAGLIPTIN 5 MG TABLET PO SCH (07:26)
[2020-05-11] MEDS: ASPIRIN 81 MG PO SCH (07:26)
[2020-05-11] MEDS: METOPROLOL TARTRATE 50 MG TAB PO SCH (07:26)
[2020-05-11] MEDS: CLOPIDOGREL 75 MG TAB PO SCH (07:26)
[2020-05-11] MEDS: CANAGLIFLOZIN PO SCH (07:30)
[2020-05-11] MEDS: METFORMIN HCL PO SCH (07:30)
[2020-05-11] MEDS: [UNRECOGNIZED DRUG - OTHER] PO SCH (07:30)
[2020-05-11 08:40] LABS: Ceruloplasmin 22.4 mg/dL (20.0-60.0)
[2020-05-11 11:19] LABS: Glucose,Whole Blood 279 mg/dL (75-99)
[2020-05-11 13:32] VITALS: BP 159/82; PULSE 70; RESP 17; TEMP 97.9
[2020-05-11 13:48] LABS: APTT 52 Sec(s) (<43); APTT 1:1 Mix 42 Sec(s) (<43); Dilute Russell Viper Venom 42 Sec(s) (<44)
--- NOTE | 2020-05-11 16:56 | P.PN ---
Subjective Progress Note Date: 05/11/20 Patient appears to have slight improvement in the left choreoathetoid movements. No new focal symptoms. Complains of some aching in the left upper arm with all the movements. Denies any side effects of amantadine. Objective - Vital Signs Vital signs: Vital Signs Temp 97.9 F 05/11/20 13:32 Pulse 70 05/11/20 13:32 Resp 17 05/11/20 13:32 BP 159/82 05/11/20 13:32 Pulse Ox 98 05/11/20 13:32 Intake & Output 05/10/20 05/11/20 05/11/20 18:59 06:59 18:59 Intake Total 800 200 Balance 800 200 Weight 94 kg Intake: IV 800 Sodium Chloride 0.9% 1, 800 000 ml @ 100 mls/hr IV . Q10H BILLY Rx#:[id number] Oral 200 Other: Voiding Method Toilet Toilet Urinal Urinal # Voids 2 - Exam Mentation normal, cranial nerves normal. Muscle strength is normal. Patient still has choreoathetoid movement of the left arm and left leg, although better than yesterday. Fine motor has slightly improved. Still bothersome. Sens ations are equal. - Labs CBC & Chem 7: 05/09/20 06:45 05/09/20 06:45 Labs: Abnormal Lab Results - Last 24 Hours (Table) 05/09/20 05/09/20 05/10/20 Range/Units 21:38 21:38 17:00 Lupus Anticoag aPTT 52 H (<43) Sec(s) POC Glucose (mg/dL) 170 H (75-99) mg/dL [id number] 2.77 H (0.61-2.37) mg/L 05/10/20 05/11/20 05/11/20 Range/Units 20:38 06:54 11:17 Lupus Anticoag aPTT (<43) Sec(s) POC Glucose (mg/dL) 166 H 208 H 279 H (75-99) mg/dL [id number] (0.61-2.37) mg/L Assessment and Plan Assessment: * New-onset choreoathetotic movements involving left arm and leg of 2 days duration ([employer] HANGING [employer] TRIMMING), of unclear etiology. No evidence of acute stroke noted on MRI of the brain. No evidence of partial seizures. No evidence of antiphospholipid syndrome, or other metabolic dysfunction. * Diabetes, poorly controlled Plan: * Patient's choreoathetoid movements have improved as compared to yesterday. Continue amantadine 100 mg twice a day. Recommend follow-up with neurologist as outpatient for further management of choreoathetoid movements. * MRI of the brain revealed nonspecific white matter demyelination. No evident subacute ischemia. Age-related atrophy. Sinus disease. * 2-D echo showed mild concentric LVH, EF is 55-60%. Normal left atrial size. Mild aortic regurgitation. Right ventricle is mild to moderately enlarged. No embolic source. * Carotid Doppler showed no hemodynamically significant ICA stenosis on either side. Antegrade flow in both vertebral arteries. * Lipid panel with cholesterol 199, LDL 118, HDL 26 and triglycerides 277. Agree with starting Lipitor 40 mg. * Hemoglobin A1c 15.6, consistent with poorly controlled diabetes. Suggest opti mizing diabetes to target A1c <7.0 * Lupus anticoagulant negative, anticardiolipin antibodies negative, HALIE negative. ESR 25/15. TFTs normal. Copper level normal 836 ([id number]), ceruloplasmin normal 22.4 (20-60). * EEG was normal with no epileptiform activity. * Continue dual and a platelet medications. * Telemetry monitoring showing sinus rhythm in 70s. No other arrhythmias. * Follow-up with neurologist as an outpatient.
--- NOTE | 2020-05-12 20:52 | P.DS ---
Providers Date of admission: 05/08/20 21:26 Expected date of discharge: 05/11/20 Attending physician: Jorje Manuel Consults: 05/08/20 21:25 Consult Physician Urgent Consulting Provider: Mabel Ordonez Consult Reason/Comments: Dystonic movements on the left side Do you want consulting provider notified?: Yes [facility] Course: Chief Complaint: Left arm and leg weak History of presenting complaint: This is a very pleasant 64-year-old patient of Dr. Porter. Diabetes mellitus, left great toe amputation 2011, left third toe amputation 2014, GERD, muscle cramps. Patient presents now with episodes of left arm and left leg feeling a bit weak. Having trouble with finder and ablations. He also has numbness in the left lower extremity with some time. No neck pain. No fever no chills. No change in speech swallowing headache. Patient is felt to have choreoathetotic movements involving the left arm and leg as per neurology. MRI of the brain was negative. Diagnoses was discussed with Dr. Alaniz from neurology. Patient was put on amantadine. Care was discussed with the patient. He'll follow-up with neuro logy as an outpatient.. Patient can be established with a ekg technician as outpatient through his family doctor. Discussion and discharge planning more than 35 minutes Consultation: Dr. Alaniz from neurology Past medical history to include: Diabetes, toe amputation, peripheral neuropathy Social history: Lives alone. Does not smoke or drink alcohol. Family history: Reviewed, noncontributory to presentation Physical examination: VITAL SIGNS: 97.6, 71, 18, 134/80, 96% on room air GENERAL: BMI 27.3, laying in bed, awake. EYES: Pupils equal. Conjunctiva normal. HEENT: External appearance of nose and ears normal, oral cavity grossly normal. NECK: JVD not raised; masses not palpable. HEART: First and second heart sounds are normal; no edema. LUNGS: Respiratory rate normal; clear to auscultation. ABDOMEN: Soft, nontender, liver spleen not palpable, no masses palpable. PSYCH: Alert and oriented x3; mood and affect normal. NEUROLOGICAL: [Cranial nerves grossly intact; no facial asymmetry, power in the left arm 3/5. Patient has some trouble with distal coordination. Left leg 4/5, decreased sensation distally INVESTIGATIONS, reviewed in the clinical context: ANAs screen, anti-cardiolipin IgG antibody, anti-cardiolipin IgG antibody, cardiolipin IgM antibody, all negative HbA1c 15.6 Lupus anticoagulant APTT 52, rest lupus parameters including dilute Deon viper venom on negative WBC 5.60 hemoglobin 12.1 platelets 270 potassium 4.4 creatinine 1.71 LDL 118 EKG tracing personally reviewed by me-normal sinus rhythm Chest x-ray film personally reviewed by me-borderline cardiomegaly Computed tomography scan of the head-Some age-related atrophy. Assessment and plan: -Choreoathetotic movements of the left side Computed tomography scan was negative. MRI of the brain negative. started on amantadine -Diabetes mellitus type 2. Resume oral hypoglycemic. Follow Accu-Cheks. -Essential hypertension. Lopressor 50 mg twice a day -Hyperlipidemia-add Lipitor -Chronic kidney disease stage III from diabetic nephropathy and possibly nephrosclerosis Disposition: Home Plan - Discharge Summary Discharge Rx Participant: No New Discharge Prescriptions: New amantadine HCL [Amantadine] 100 mg PO BID #60 capsule Aspirin 81 mg PO DAILY #20 chew Atorvastatin [Lipitor] 40 mg PO HS #30 tab Clopidogrel [Plavix] 75 mg PO DAILY #30 tab Continue sitaGLIPtin [Januvia] 100 mg PO DAILY Canagliflozin/Metformin HCl [Invokamet 150-1,000 mg Tablet] 1 tab PO BID Esomeprazole Magnesium [NexIUM] 20 mg PO DAILY Bydureon Bcise 2mg Autoinject 2 mg SQ FATIMA glipiZIDE [Glucotrol] 5 mg PO DAILY Discharge Medication List sitaGLIPtin [Januvia] 100 mg PO DAILY 10/03/15 [History] Canagliflozin/Metformin HCl [Invokamet 150-1,000 mg Tablet] 1 tab PO BID 10/31/15 [History] Bydureon Bcise 2mg Autoinject 2 mg SQ FATIMA 05/08/20 [History] Esomeprazole Magnesium [NexIUM] 20 mg PO DAILY 05/08/20 [History] glipiZIDE [Glucotrol] 5 mg PO DAILY 05/08/20 [History] Aspirin 81 mg PO DAILY #20 chew 05/11/20 [Rx] Atorvastatin [Lipitor] 40 mg PO HS #30 tab 05/11/20 [Rx] Clopidogrel [Plavix] 75 mg PO DAILY #30 tab 05/11/20 [Rx] amantadine HCL [Amantadine] 100 mg PO BID #60 capsule 05/11/20 [Rx] Follow up Appointment(s)/Referral(s): Raul Barnett DO [Primary Care Provider] - 1-2 days (office closed at time of discharge. Please call to schedule an appointment) Mir Iglesias MD [STAFF PHYSICIAN] - 1 Week (office will call with appointment time) Patient Instructions/Handouts: Tremors (DC) Discharge Disposition: HOME SELF-CARE
== END 2020-05-11 14:23 | disposition home or self-care (01) | DRG 948 ==
LOC: EC 17:54 → 4SSUR 21:26
PROVIDERS: ADMIT Hospitalist; ATTEND Hospitalist
DX: R53.1 Weakness (principal); R25.8 Other abnormal involuntary movements; Z79.84 Long term (current) use of oral hypoglycemic drugs; Z83.3 Family history of diabetes mellitus; Z89.412 Acquired absence of left great toe; K21.9 Gastro-esophageal reflux disease without esophagitis; E11.65 Type 2 diabetes mellitus with hyperglycemia; E11.42 Type 2 diabetes mellitus with diabetic polyneuropathy; I12.9 Hypertensive chronic kidney disease with stage 1 through stage 4 chronic kidney disease, or unspecified chronic kidney disease; N18.30 Chronic kidney disease, stage 3 unspecified; Z89.422 Acquired absence of other left toe(s); E78.5 Hyperlipidemia, unspecified; E11.22 Type 2 diabetes mellitus with diabetic chronic kidney disease; Z20.828 Contact with and (suspected) exposure to other viral communicable diseases
CPT/HCPCS: 36415; 70450; 70553; 71046; 80053; 80061; 81003; 82232; 82390; 82525; 82550; 83036; 83735; 84100; 84439; 84443; 84481; 85025; 85027; 85610; 85613; 85652; 85730; 85732; 86038; 86147; 87635; 93005; 93306; 93880; 95816

== ENCOUNTER → 2022-01-21 | Outpatient (CLI) | payer BC ==
[2022-01-21 14:23] LABS: Basophils # (A) 0.04 X 10*3/uL (0.00-0.10); Basophils % (A) 0.6 %; Eosinophils # (A) 0.16 X 10*3/uL (0.04-0.35); Eosinophils % (A) 2.5 %; HCT 44.9 % (39.6-50.0); HGB 14.6 g/dL (13.0-17.0); Immature Grans, Automated 0.2 %; Lymphocytes # (A) 1.23 X 10*3/uL (0.90-5.00); Lymphocytes % (A) 19.5 %; MCH 29.1 pg (27.0-32.0); MCHC 32.5 g/dL (32.0-37.0); MCV 89.4 fL (80.0-97.0); Monocytes # (A) 0.47 X 10*3/uL (0.20-1.00); Monocytes % (A) 7.4 %; NRBC Per 100 WBC 0 /100 WBCS (0.0-0.0); Neutrophils % (A) 69.8 %; Platelet Count 305 X 10*3/uL (140-440); RBC 5.02 X 10*6/uL (4.40-5.60); RDW 13.2 % (11.5-14.5); WBC 6.31 X 10*3/uL (4.50-10.00)
[2022-01-21 14:51] LABS: African American GFR (CKD) 64.7 (60.0-200.0); Albumin 4.1 g/dL (3.8-4.9); Albumin/Globulin Ratio 1.54 (1.60-3.17); BUN/Creat Ratio 11.97 Ratio (12.00-20.00); Blood Urea Nitrogen 15.8 mg/dL (9.0-27.0); Calcium 9.1 mg/dL (8.7-10.3); Globulin 2.7 g/dL (1.6-3.3); Non-African American GFR(CKD) 55.8 (60.0-200.0); Potassium 4.8 mmol/L (3.5-5.5); Prealbumin 21.4 mg/dL (18.0-42.0); Total Bilirubin 0.6 mg/dL (0.30-1.20); Total Protein 6.8 g/dL (6.2-8.2)
== END | disposition home or self-care (01) ==
LOC: LABWHC1 08:27
PROVIDERS: ATTEND Podiatrist
DX: E11.621 Type 2 diabetes mellitus with foot ulcer (principal); L97.529 Non-pressure chronic ulcer of other part of left foot with unspecified severity
CPT/HCPCS: 36415; 80053; 83036; 84134; 85025

== ENCOUNTER → 2022-01-30 | Outpatient (CLI) | payer BC ==
--- NOTE | 2022-01-31 09:27 | US ---
EXAMINATION TYPE: US arterial LE multi level DATE OF EXAM: 01/30/2022 1:15 PM CLINICAL HISTORY: I73.9 PERIPHERAL VASCULAR DISEASE, UNSPECIFIED. PVD. History of diabetes. History o f left first toe amputation. Doppler Waveforms: Right: Biphasic Left: Biphasic Ankle-Brachial Indices: Right: 1.03 Left: .90 Toe Brachial Indices: Right: 0.85 Left: n/a IMPRESSION: Normal bilateral KLEVER values. Normal right sided TBI value.
== END | disposition home or self-care (01) ==
LOC: RADUSWWP 12:30
PROVIDERS: ATTEND Podiatrist
DX: I73.9 Peripheral vascular disease, unspecified (principal)
CPT/HCPCS: 93923